=== PATIENT | female | born 1985 | race Caucasian/White ===

== ENCOUNTER → 2017-12-20 | Outpatient (CLI) | payer BC, OTHER | END | disposition home or self-care (01) | LOC: C.RDSM 15:00 | PROVIDERS: ATTEND Orthopaedic Surgery Sports Medicine | DX: D17.24 Benign lipomatous neoplasm of skin and subcutaneous tissue of left leg (principal) ==

== ENCOUNTER → 2017-12-22 | Outpatient (CLI) | payer OTHER ==
[~2017-12-22] MED LIST: GADAVIST IV PRN; PATIENT'S ALLERGY INFO NEEDS ENTERED SCH
--- NOTE | 2017-12-22 09:49 | DIAGNOSTIC IMAGING REPORT ---
L LOWER EXT NONJOINT COMBO CLINICAL HISTORY: LT LEG,DISTAL HAMSTRING,MASS TECHNIQUE: Multiaxial MRI acquisition COMPARISON STUDY: None FINDINGS: Unremarkable signal characteristics from all major muscle bundles. No evidence for mass or collection by MRI criteria. No abnormal postcontrast enhancement. Signal characteristics the osseous structures are unremarkable. IMPRESSION: 1. Negative study. No evidence for mass or collection by MRI criteria. All major muscular structures are unremarkable The above report was generated using voice recognition software. It may contain grammatical, syntax or spelling errors. Electronically signed by: Herber Cartagena M.D. 12/22/2017 9:48 AM Dictated Date/Time: 12/22/2017 9:42 AM
== END | disposition home or self-care (01) ==
LOC: C.MRI 07:31
PROVIDERS: ATTEND Orthopaedic Surgery Sports Medicine
DX: R22.40 Localized swelling, mass and lump, unspecified lower limb (principal)